=== PATIENT | male | born 1995 | race Caucasian/White ===

== ENCOUNTER 2018-03-02 18:39 | Inpatient (IN) ==
[2018-03-02] MEDS ORDERED: Naloxone Inj 2 MG/2 ML Vial IM ONE (18:56)
[2018-03-02] MEDS ORDERED: Charcoal Activated Liq 25 GM/120 ML Bottle NG/OG ONE (18:56)
[2018-03-02] MEDS ORDERED: Sod Chloride 0.9% Inj 1,000 ML IV.SIG ONE ×2 (18:56→21:08)
--- NOTE | 2018-03-02 19:05 | ED ---
HPI General Chief Complaint: Overdose Stated Complaint: Poss OD Time Seen by Provider: 03/02/18 18:52 Source: patient and RN notes reviewed Limitations: no limitations History of Present Illness HPI Narrative: 22-year-old male presents to the emergency department for evaluation of overdose. According to the patient, approximately 15-20 minutes ago, he took 12 Xanax 0.25 mg and 8 morphine 30 mg tablets. He states that he "feels useless". He does state that he was trying to commit suicide. He states that his girlfriend brought him to the emergency department. He states he drinks alcohol occasionally, last time was 3 days ago. He smokes marijuana. He denies any other illicit drug use. Moderate severity. MD complaint: Reports intentional overdose Onset (ago): minute(s) (15-20) Intent: suicide attempt How Overdose Was Discovered: called family/friend Associated symptoms: depression Treatments Prior to Arrival: none Related Data Home Medications Medication Instructions Recorded Confirmed No Known Home Medications 03/02/18 03/02/18 Allergies Allergy/AdvReac Type Severity Reaction Status Date / Time *MDRO Multi-Drug Resistant AdvReac Unknown n/a Uncoded 03/02/18 18:55 Organism Review of Systems ROS: all other systems reviewed are negative PMFSH Social History Social History Substance History: Active Abuse Second Hand Smoke Exposure: Yes Smoking Status: Never smoker How Often Do You Have a Drink Containing Alcohol: 2 to 4 times a month Recent Travel in [facility] within the Last 8 Weeks: No Recent Out of Country Travel within the Last 8 Weeks: No Substance Abuse Detail Opiates: Substance Use Status: Active Route Used Substance Abuse: By Mouth Reason for Use: Hurt Myself Immunization History Tetanus Immunization: Unsure Exam Narrative Exam Narrative: GENERAL: Well-nourished, well-developed male patient, afebrile. SKIN: Focused skin assessment warm/dry. HEAD: Normocephalic. Atraumatic EYES: No scleral icterus. No injection or drainage. Pupils 3 mm, PERRLA NECK: Supple, trachea midline. No JVD or lymphadenopathy. CARDIOVASCULAR: Regular rhythm without murmurs, gallops, or rubs. Patient is bradycardic. RESPIRATORY: Breath sounds equal bilaterally. No accessory muscle use. Lung sounds are clear to auscultation GASTROINTESTINAL: Abdomen soft, non-tender, nondistended. MUSCULOSKELETAL: No cyanosis, or edema. BACK: Nontender without obvious deformity. No CVA tenderness. Course Initial Documented Vital Signs Temperature 97.0 F L 03/02/18 18:39 Pulse Rate 64 03/02/18 18:39 Respiratory Rate 16 03/02/18 18:39 Blood Pressure 107/56 L 03/02/18 18:39 Pulse Oximetry 99 12 18:39 Last Documented Vital Signs Temperature 97.0 F L 03/02/18 18:39 Pulse Rate 40 L 03/02/18 21:15 Respiratory Rate 14 03/02/18 21:15 Blood Pressure 99/56 L 03/02/18 21:15 Pulse Oximetry 98 03/02/18 21:15 Medical Decision Making MICHAEL Attestation MICHAEL supervised visit: Yes Attestation: I, Dr. Mendoza, have reviewed the advance practice practitioner's documentation and am in agreement, met with the patient face to face, made the diagnosis, and the medical decision making was done by me. *My assessment and Findings: Opioid and xanax overdose here. Sinus bradycardia into 30s after naloxone. Naloxone drip started here. One prior HR on record from 2014 is 67. Pt is AOx3 although very sleepy though slightly improved after Narcane. Pt received activated charcoal upon arrival. Admission for IMC. MDM Narrative Medical decision making narrative: 22 year old male presents to the emergency department for evaluation after he intentionally overdosed on Xanax and Morphine. EKG, CBC, CMP, Magnesium, UDS, Salicylate level, Acetaminophen level , PTT, PT/INR are ordered and pending. Patient is given NS 1 L IV bolus, Zofran 4 mg IV, Charcoal 50 gm PO, Narcan 2 mg IM. Patient is placed under a Gee Act. CBC shows no acute abnormality. CMP shows no acute abnormality. Magnesium is 2.2. UDS is pending. Salicylate level is less than 1.7. Acetaminophen level is less than 2.0. PTT is 26.4. PT/INR is 12.1/1.2. Patient's heart rate is in the 30s-40s. He remains drowsy. He is given additional Narcan 0.4 mg IV. 2120 - Patient's heart rate remains in the 30s-40s and he remains drowsy. He is now started on a Narcan drip, given atropine 0.5 mg IV. Second liter normal saline IV bolus is ordered. Patient is admitted to interior design program chair, Dr. Tripathi, who accepts admission. Medical Screen Exam Complete: Yes Emergency Medical Condition: Yes Differential Diagnosis Differential Diagnosis: depression vs. overdose vs. suicidal ideation Medical Records Medical records reviewed: Yes I reviewed the patient's medical records. Lab Data Result diagrams: 03/02/18 19:15 03/02/18 19:15 Lab Results 03/02/18 03/02/18 03/02/18 Range/Units 19:15 19:15 19:15 WBC 5.7 (4.0-11.0) th/mm3 RBC 4.62 (4.50-5.90) mil/mm3 Hgb 14.8 (13.0-17.0) gm/dL Hct 42.9 (39.0-51.0) % MCV 92.9 (80.0-100.0) fL MCH 32.0 (27.0-34.0) pg MCHC 34.5 (32.0-36.0) % RDW 12.6 (11.6-17.2) % Plt Count 239 (150-450) th/mm3 MPV 8.2 (7.0-11.0) fL Neut % (Auto) 53.0 (16.0-70.0) % Lymph % (Auto) 28.5 (9.0-44.0) % Crosby % (Auto) 7.8 (0.0-8.0) % Eos % (Auto) 10.1 H (0.0-4.0) % Baso % (Auto) 0.6 (0.0-2.0) % Neut # (Auto) 3.0 (1.8-7.7) th/mm3 Lymph # (Auto) 1.6 (1.0-4.8) th/mm3 Crosby # (Auto) 0.4 (0.0-0.9) th/mm3 Eos # (Auto) 0.6 H (0.0-0.4) th/mm3 Baso # (Auto) 0.0 (0.0-0.2) th/mm3 WBC Differential . Differential Comment Auto diff final PT 12.1 H (9.8-11.6) sec INR 1.2 Ratio APTT 26.4 (23.4-31.7) sec Puncture Site Patient Temperature O2 Saturation (90-100) % ABG pH (7.380-7.420) ABG pCO2 (38-42) mmHg ABG pO2 (61-120) mmHg ABG HCO3 (22-26) mmol/L ABG O2 Content (12.0-20.0) Vol % ABG Base Excess (-2-2) mmol/L ABG Methemoglobin (0-2) % Micah Test Hemoglobin (12.0-16.0) G/DL Carboxyhemoglobin (0-4) % O2 Delivery Device Inspired O2 % Critical Value Sodium 140 (136-145) meq/L Potassium 3.8 (3.5-5.1) meq/L Chloride 106 (98-107) meq/L Carbon Dioxide 28.2 (21.0-32.0) meq/L Anion Gap 6 (5-15) meq/L BUN 10 (7-18) mg/dL Creatinine 0.91 (0.60-1.30) mg/dL Estimated GFR Greater than 89 (>89) mL/min Random Glucose 77 (74-106) mg/dL Calcium 8.6 (8.5-10.1) mg/dL Magnesium 2.2 (1.5-2.5) mg/dL Total Bilirubin 1.4 H (0.2-1.0) mg/dL AST 18 (15-37) U/L ALT 27 (12-78) U/L Alkaline Phosphatase 80 (45-117) U/L Total Protein 7.1 (6.4-8.2) g/dL Albumin 4.1 (3.4-5.0) g/dL Salicylates (2.8-20.0) mg/dL Acetaminophen Less than 2.0 L (10.0-30.0) mcg/mL Serum Alcohol Less than 3 (0-5) mg/dL 03/02/18 03/02/18 Range/Units 19:15 19:35 WBC (4.0-11.0) th/mm3 RBC (4.50-5.90) mil/mm3 Hgb (13.0-17.0) gm/dL Hct (39.0-51.0) % MCV (80.0-100.0) fL MCH (27.0-34.0) pg MCHC (32.0-36.0) % RDW (11.6-17.2) % Plt Count (150-450) th/mm3 MPV (7.0-11.0) fL Neut % (Auto) (16.0-70.0) % Lymph % (Auto) (9.0-44.0) % Crosby % (Auto) (0.0-8.0) % Eos % (Auto) (0.0-4.0) % Baso % (Auto) (0.0-2.0) % Neut # (Auto) (1.8-7.7) th/mm3 Lymph # (Auto) (1.0-4.8) th/mm3 Crosby # (Auto) (0.0-0.9) th/mm3 Eos # (Auto) (0.0-0.4) th/mm3 Baso # (Auto) (0.0-0.2) th/mm3 WBC Differential Differential Comment PT (9.8-11.6) sec INR Ratio APTT (23.4-31.7) sec Puncture Site Left radial Patient Temperature 98.6 O2 Saturation 96 (90-100) % ABG pH 7.39 (7.380-7.420) ABG pCO2 39 (38-42) mmHg ABG pO2 103 (61-120) mmHg ABG HCO3 23 (22-26) mmol/L ABG O2 Content 17.2 (12.0-20.0) Vol % ABG Base Excess -1.0 (-2-2) mmol/L ABG Methemoglobin 0.7 (0-2) % Micah Test Present Hemoglobin 12.6 (12.0-16.0) G/DL Carboxyhemoglobin 1.6 (0-4) % O2 Delivery Device Room air Inspired O2 21 % Critical Value No Sodium (136-145) meq/L Potassium (3.5-5.1) meq/L Chloride (98-107) meq/L Carbon Dioxide (21.0-32.0) meq/L Anion Gap (5-15) meq/L BUN (7-18) mg/dL Creatinine (0.60-1.30) mg/dL Estimated GFR (>89) mL/min Random Glucose (74-106) mg/dL Calcium (8.5-10.1) mg/dL Magnesium (1.5-2.5) mg/dL Total Bilirubin (0.2-1.0) mg/dL AST (15-37) U/L ALT (12-78) U/L Alkaline Phosphatase (45-117) U/L Total Protein (6.4-8.2) g/dL Albumin (3.4-5.0) g/dL Salicylates Less than 1.7 L (2.8-20.0) mg/dL Acetaminophen (10.0-30.0) mcg/mL Serum Alcohol (0-5) mg/dL Discharge Plan Discharge Disposition Patient Disposition: ED Admit(ED Internal Use Only) Discharge Order Discharge Orders: ED Use Only Admit Order (Routine); Ordered 03/02/18 Ordered By: Chantale Gutierrez Discharge Details Diagnosis: Drug overdose Physicians Team ED Provider: Brendon Mendoza ED Midlevel Provider: Chantale Gutierrez Primary Care Provider: Primary Care Juliana Rashid Rxs /Orders / Referrals /Forms Prescriptions: No Action No Known Home Medications RF: 0 Discharge Interventions Interventions: Vital Signs Last Done: 03/02/18 21:15 Status ED Status: Admitted Patient
[2018-03-02] MEDS ORDERED: Naloxone Inj 0.4 MG/ML Vial IV.PUSH ONE ×2 (19:32→21:15)
[2018-03-02 19:33] LABS: Baso % (Auto) 0.6 % (0.0-2.0); Eos % (Auto) 10.1 % (0.0-4.0); Hematocrit 42.9 % (39.0-51.0); Hemoglobin 14.8 gm/dL (13.0-17.0); Lymph % (Auto) 28.5 % (9.0-44.0); Mean Corpuscular HGB Conc 34.5 % (32.0-36.0); Mean Corpuscular Volume 92.9 fL (80.0-100.0); Mean Platelet Volume 8.2 fL (7.0-11.0); Mono % (Auto) 7.8 % (0.0-8.0); Platelet Count 239 th/mm3 (150-450); Red Blood Count 4.62 mil/mm3 (4.50-5.90); Red Cell Distribution Width 12.6 % (11.6-17.2); White Blood Count 5.7 th/mm3 (4.0-11.0)
[2018-03-02] MEDS ORDERED: Naloxone Inj 0.4 MG/ML Vial ONE (19:33)
[2018-03-02 19:34] LABS: Eos # (Auto) 0.6 th/mm3 (0.0-0.4); Lymph # (Auto) 1.6 th/mm3 (1.0-4.8); Mono # (Auto) 0.4 th/mm3 (0.0-0.9)
[2018-03-02 19:48] LABS: Activated Partial Thrombo Time 26.4 sec (23.4-31.7); INR 1.2 Ratio; Prothrombin Time 12.1 sec (9.8-11.6)
[2018-03-02 20:05] LABS: Alanine Aminotransferase 27 U/L (12-78); Albumin 4.1 g/dL (3.4-5.0); Anion Gap 6 meq/L (5-15); Aspartate Aminotransferase 18 U/L (15-37); Blood Urea Nitrogen 10 mg/dL (7-18); Calcium 8.6 mg/dL (8.5-10.1); Carbon Dioxide 28.2 meq/L (21.0-32.0); Chloride 106 meq/L (98-107); Glomerular Filtration Rate Greater Than 89 mL/min (>89); Glucose,Random 77 mg/dL (74-106); Magnesium 2.2 mg/dL (1.5-2.5); Potassium 3.8 meq/L (3.5-5.1); Sodium 140 meq/L (136-145)
[2018-03-02 20:08] LABS: Alkaline Phosphatase 80 U/L (45-117); Total Protein 7.1 g/dL (6.4-8.2)
[2018-03-02 20:15] LABS: ABG PCO2 39 mmHg (38-42); ABG PO2 103 mmHg (61-120)
[2018-03-02] MEDS ORDERED: Atropine Inj 1 MG/ML Vial IV.PUSH ONE (21:13)
[2018-03-02 22:14] LABS: Amphetamine Screen,Urine Neg (Neg); Barbiturate Screen,Urine Neg (Neg); Cannabinoid Screen,Urine Pos (Neg); Cocaine Screen,Urine Neg (Neg)
[2018-03-02 22:28] LABS: Opiate Screen,Urine Neg (Neg)
--- NOTE | 2018-03-02 23:37 | P.HPCC ---
History of Present Illness Service: Critical care Primary Care Physician: No Primary Care Physician Chief Complaint: Suicide attempt via intentional drug overdose History of Present Illness: 22yM presenting to the ED for suicide attempt via intentional drug overdose. The patient is currently confused, able to tell me his name/ where he is but only answers "I took all the drugs" when I ask him what brought him in this evening. As per ED notes, the patient reportedly took morphine (240 mg total) and Xanax (3 mg total) in an attempt to kill himself. He was given Narcan and activated charcoal prior to my evaluation. He is maintaining his airway and does not currently require intubation. - Diagnosis (1) Suicide attempt (2) Drug overdose (3) Encephalopathy acute Inpatient Certification: I certify that the inpatient services were ordered in accordance with Medicare regulations governing the order. This includes certification that hospital inpatient services are reasonable and necessary and in the case of services not specified as inpatient-only under 42 CFR 419.22(n), that they are appropriately provided as inpatient services in accordance to with the 2-midnight benchmark under 43 CFR 412.3(e) Estimated Total Length of Stay (Days): 2 Plans for Post Hospital Care: Home Review of Systems unobtainable due to mental status PMFSH - History History Provided By: Patient, Medical Record - Medical / Surgical Hx Neg / Unobtainable Medical Problems Denied: Unable to Obtain Surgical History: Unable to Obtain - Medical History Medical History: Medical History (Last Reviewed 03/02/18 @ 23:56 by Cathy Tripathi DO) Medical history unknown Surgical history unknown - Social History I have reviewed the patient's Social History: Yes - Tobacco History Second Hand Smoke Exposure: Yes Smoking Status: Never smoker - Alcohol History How Often Do You Have a Drink Containing Alcohol: 2 to 4 times a month - Substance Use History Substance History: Active Abuse - Substance Use Type Opiates Status: Active Route Used: By Mouth Reason for Use: Hurt Myself - Travel History Recent Travel in the [place] Within the Last 8 Weeks: No Recent Travel Out of the Country Within the Last 8 Weeks: No - Immunization History Tetanus Immunization: Unsure Medications and Allergies Active Medications: Active Medications Naloxone HCl 4 mg/ Dextrose 250 mls @ 12.5 mls/hr IV.CONT TITRATE PRN; Protocol PRN Reason: Ordered RASS Sodium Chloride (Ns Flush) 2 ml IV.FLUSH PRN PRN PRN Reason: FLUSH AFTER USING IV ACCESS Allergies Allergy/AdvReac Type Severity Reaction Status Date / Time *MDRO Multi-Drug Resistant AdvReac Unknown n/a Uncoded 03/02/18 18:55 Organism Home Medications Medication Instructions Recorded Confirmed Type No Known Home Medications 03/02/18 03/02/18 History Results - Labs CBC & Chem 7: 03/02/18 19:15 03/02/18 19:15 Labs: Short CBC 03/02/18 Range/Units 19:15 WBC 5.7 (4.0-11.0) th/mm3 Hgb 14.8 (13.0-17.0) gm/dL Hct 42.9 (39.0-51.0) % Plt Count 239 (150-450) th/mm3 BMP 03/02/18 19:15 Sodium 140 Potassium 3.8 Chloride 106 Carbon Dioxide 28.2 BUN 10 Creatinine 0.91 Calcium 8.6 Liver Function 03/02/18 Range/Units 19:15 Total Bilirubin 1.4 H (0.2-1.0) mg/dL AST 18 (15-37) U/L ALT 27 (12-78) U/L Alkaline Phosphatase 80 (45-117) U/L Albumin 4.1 (3.4-5.0) g/dL - ECG Attestation: I personally reviewed and interpreted this ECG as follows: Interpretation: Rate: 47 BPM Rhythm: Sinus [place]: Normal Intervals: Normal intervals, no blocks, QTc 386 ms Q waves: II, III, aVF (non-pathologic) T waves: Inverted in V3 ST segments: No elevations or depressions Impression: Non-specific EKG, no terminal R wave/ prolonged QTc/ other signs concerning for tricyclic overdose, sinus bradycardia. Exam Vital signs: Vital Signs 03/02/18 18:39 03/02/18 18:48 03/02/18 19:03 Temperature 97.0 F L Pulse Rate 64 51 L Respiratory Rate 16 14 Blood Pressure 107/56 L 103/56 L Pulse Oximetry 99 100 100 03/02/18 19:25 03/02/18 19:36 03/02/18 19:40 Temperature Pulse Rate 40 L 46 L 50 L Respiratory Rate 16 14 16 Blood Pressure 103/63 91/52 L 110/70 Pulse Oximetry 100 98 98 03/02/18 20:08 03/02/18 21:15 03/02/18 21:29 Temperature Pulse Rate 41 L 40 L 67 Respiratory Rate 14 14 15 Blood Pressure 111/68 99/56 L 112/60 Pulse Oximetry 98 98 99 03/02/18 22:00 03/02/18 23:33 Temperature Pulse Rate 88 48 L Respiratory Rate 18 16 Blood Pressure 137/67 99/57 L Pulse Oximetry 98 100 Intake & Output 03/02/18 03/02/18 03/03/18 06:59 18:59 06:59 Intake Total 1999 Output Total 500 / 500 Balance 1500 / 1500 Weight 54.431 kg Intake: IV 1999 NS Inj 1,000 ML @ Wide Open IV. 1999 SIG BOLUS ONE Rx#:[id number] Output: Urine 500 / 500 Narrative: GEN: Sleepy but easily arousable to voice, no current distress HEENT: Dried charcoal noted on mouth/ in oropharynx, pupils 2 mm and reactive bilaterally CARDIO: Felipe, regular RESP: Clear to auscultation bilaterally, mildly bradypneic but no respiratory distress, O2 sats 100% on room air ABD/GI: Soft, non-tender, non-distended EXT/MSK: No peripheral edema SKIN: Warm and well-perfused NEURO: Sleepy but easily arousable, RASS 0, GCS 13 ([id number]) PSYCH: Calm, cooperative with exam, no current agitation, answers "yes" when asked if this was an intentional overdose but does not answer any additional questions Caprini VTE Risk Assessment Caprini VTE Risk Assessment: No/Low Risk (score <= 1) Caprini Risk Assessment Model: Point Value = 1 Point Value = 2 Point Value = 3 Point Value = 5 Age 41-60 Minor surgery BMI > 25 kg/m2 Swollen legs Varicose veins or History of unexplained or recurrent spontaneous Oral contraceptives or hormone replacement Sepsis (< 1 month) Serious lung disease, including pneumonia (< 1 month) Abnormal pulmonary function Acute myocardial infarction Congestive heart failure (< 1 month) History of inflammatory bowel disease Medical patient at bed rest Age 61-74 Arthroscopic surgery Major open surgery (> 45 min) Laparoscopic surgery (> 45 min) Malignancy Confined to bed (> 72 hours) Immobilizing plaster cast Central venous access Age >= 75 History of VTE Family history of VTE Factor V Leiden Prothrombin [id number] Lupus anticoagulant Anticardiolipin antibodies Elevated serum homocysteine Heparin-induced thrombocytopenia Other congenital or acquired thrombophilia Stroke (< 1 month) Elective arthroplasty Hip, pelvis, or leg fracture Acute spinal cord injury (< 1 month) Prophylaxis Regimen: Total Risk Factor Score Risk Level Prophylaxis Regimen 0-1 Low Early ambulation 2 Moderate Order ONE of the following: *Sequential Compression Device (SCD) *Heparin 5000 units SQ BID 3-4 Higher Order ONE of the following medications: *Heparin 5000 units SQ TID *Enoxaparin/Lovenox 40 mg SQ daily (WT < 150 kg, CrCl > 30 mL/min) *Enoxaparin/Lovenox 30 mg SQ daily (WT < 150 kg, CrCl > 10-29 mL/min) *Enoxaparin/Lovenox 30 mg SQ BID (WT < 150 kg, CrCl > 30 mL/min) AND/OR *Sequential Compression Device (SCD) 5 or more Highest Order ONE of the following medications: *Heparin 5000 units SQ TID (Preferred with Epidurals) *Enoxaparin/Lovenox 40 mg SQ daily (WT < 150 kg, CrCl > 30 mL/min) *Enoxaparin/Lovenox 30 mg SQ daily (WT < 150 kg, CrCl > 10-29 mL/min) *Enoxaparin/Lovenox 30 mg SQ BID (WT < 150 kg, CrCl > 30 mL/min) AND *Sequential Compression Device (SCD) Assessment and Plan - Problem List (1) Suicide attempt Code(s): T14.91XA - Suicide attempt, initial encounter Status: Acute (2) Drug overdose Code(s): T50.901A - Poisoning by unspecified drugs, medicaments and biological substances, accidental (unintentional), initial encounter Status: Acute (3) Encephalopathy acute Code(s): G93.40 - Encephalopathy, unspecified Status: Acute - Assessment and Plan Plan: 22yM presenting after suicide attempt via intentional poly-drug overdose NEURO/ TOX: * Frequent neuro checks, Narcan PRN (gtt ordered in ED but patient is currently easily arousable and does not appear to have any significant respiratory depression) * If the patient begins to become more somnolent, will start CO2 monitoring and consider Narcan gtt * Patient also received activated charcoal in ED, aspiration precautions * Poison Control Center contacted by ED and is following PSYCH: * Gee Act filed by ED physician, patient presents an immediate danger to himself given admission of intentional drug overdose * 1:1 observation, suicide precautions * AM psych consult F/E/N: * Maintenance fluids, NPO * AM labs PROPHY: * Early ambulation/ SCDs, low risk for DVT, no indication for pharmacologic prophylaxis * Pepcid until diet resumed Counseling/ Coordination of Care: This patient is critically ill with impairment of one or more vital organ systems with a high probability of imminent or life-threatening deterioration. High-complexity medical decision making was required to support vital organ function and/ or prevent deterioration in the patient's condition. Total critical care time spent is 45 minutes giving full attention to this patient. This includes examining the patient, gathering history from someone other than the patient (i.e. chart review), discussing the patient's care with other providers, managing the patient's mental status and need for Narcan antidote administration, re-evaluation at frequent intervals, and documentation. Amount of time is separate from teaching, counseling the patient and/or family, and exclusive of procedures. Code Status: Full (2) Drug overdose Qualifiers: Encounter type: initial encounter Injury intent: intentional self-harm Qualified Code(s): T50.902A - Poisoning by unspecified drugs, medicaments and biological substances, intentional self-harm, initial encounter
[2018-03-02] MEDS ORDERED: Potassium Chloride 25 MEQ Effervescent Tablet PO PRN (23:38)
[2018-03-02] MEDS ORDERED: Magnesium Sulfate Inj 2 GM in Sodium Chlor 0.9% Inj 96 ML IV.SIG PRN (23:38)
[2018-03-02] MEDS ORDERED: Sodium Phosphate Inj 30 MMOL in Sodium Chlor 0.9% Inj 250 ML IV.SIG PRN (23:38)
[2018-03-02] MEDS ORDERED: Potassium Phosphate 500 MG Soluble Tablet PO PRN ×2 (23:38)
[2018-03-02] MEDS ORDERED: Potassium Chlor 20 mEq Premix 20 MEQ/100 ML PIGGYBACK IV.SIG PRN ×2 (23:38)
[2018-03-02] MEDS ORDERED: Potassium Chlor 40 mEq Premix 40 MEQ/100 ML PIGGYBACK IV.SIG PRN ×2 (23:38)
[2018-03-02] MEDS ORDERED: Naloxone Inj 0.4 MG/ML Vial IV.PUSH PRN (23:38)
[2018-03-02] MEDS ORDERED: Bisacodyl 10 MG Supp RECTAL PRN (23:38)
[2018-03-02] MEDS ORDERED: Magnesium Oxide 400 MG Tablet PO PRN (23:38)
[2018-03-02] MEDS ORDERED: Magnesium Sulfate Inj 4 GM in Sodium Chlor 0.9% Inj 92 ML IV.SIG PRN (23:38)
[2018-03-02] MEDS ORDERED: Potassium Phosphate Inj 30 MMOL in Sodium Chlor 0.9% Inj 250 ML IV.SIG PRN (23:38)
[2018-03-02] MEDS ORDERED: Sod Chloride 0.9% Inj 1,000 ML IV.CONT SCH (23:45)
[2018-03-03] MEDS ORDERED: Chlorhexidine Gluconate 2% 1 Pack (2 Cloths) TOPICAL PRN (04:00)
[2018-03-03] MEDS ORDERED: Chlorhexidine Gluconate 2% 1 Pack (2 Cloths) TOPICAL SCH (04:00)
[2018-03-03 04:15] LABS: Baso % (Auto) 0.7 % (0.0-2.0); Eos # (Auto) 0.7 th/mm3 (0.0-0.4); Eos % (Auto) 10.7 % (0.0-4.0); Hematocrit 38.6 % (39.0-51.0); Hemoglobin 13.5 gm/dL (13.0-17.0); Lymph % (Auto) 28.8 % (9.0-44.0); Mean Corpuscular Hemoglobin 32.3 pg (27.0-34.0); Mean Corpuscular Volume 92.2 fL (80.0-100.0); Mean Platelet Volume 7.7 fL (7.0-11.0); Mono # (Auto) 0.5 th/mm3 (0.0-0.9); Mono % (Auto) 7.1 % (0.0-8.0); Neut # (Auto) 3.6 th/mm3 (1.8-7.7); Neut % (Auto) 52.7 % (16.0-70.0); Platelet Count 227 th/mm3 (150-450); Red Blood Count 4.18 mil/mm3 (4.50-5.90); Red Cell Distribution Width 12.8 % (11.6-17.2); White Blood Count 6.9 th/mm3 (4.0-11.0)
[2018-03-03 05:02] LABS: Alanine Aminotransferase 21 U/L (12-78); Albumin 3.4 g/dL (3.4-5.0); Alkaline Phosphatase 68 U/L (45-117); Anion Gap 7 meq/L (5-15); Aspartate Aminotransferase 12 U/L (15-37); Blood Urea Nitrogen 9 mg/dL (7-18); Calcium 7.8 mg/dL (8.5-10.1); Carbon Dioxide 24.1 meq/L (21.0-32.0); Chloride 114 meq/L (98-107); Glomerular Filtration Rate Greater Than 89 mL/min (>89); Glucose,Random 76 mg/dL (74-106); Magnesium 2.2 mg/dL (1.5-2.5); Potassium 3.8 meq/L (3.5-5.1); Sodium 145 meq/L (136-145); Total Protein 5.9 g/dL (6.4-8.2)
[2018-03-03 05:35] VITALS: TEMP 97.5
[2018-03-03] MEDS ORDERED: Famotidine PF Inj 20 MG/2 ML Vial IV.PUSH SCH (09:00)
[2018-03-03] MEDS ORDERED: Senna/Docusate Sodium 8.6/50 MG Tablet PO SCH (09:00)
[2018-03-03] MEDS ORDERED: Famotidine 20 MG Tablet PO SCH (09:00)
--- NOTE | 2018-03-03 10:42 | P.PNCC ---
Subjective Subjective Remarks/Hospital Course: 22yM presenting to the ED for suicide attempt via intentional drug overdose. The patient is currently confused, able to tell me his name/ where he is but only answers "I took all the drugs" when I ask him what brought him in this evening. As per ED notes, the patient reportedly took morphine (240 mg total) and Xanax (3 mg total) in an attempt to kill himself. He was given Narcan and activated charcoal prior to my evaluation. He is maintaining his airway and does not currently require intubation. Subjective 03/03: Resting in bed in no acute distress. Agitated. Bradycardic. States he wants to "go home and see his girlfriend ". Objective Vital Signs / I&O: Vital Signs 03/02/18 18:39 03/02/18 18:48 03/02/18 19:03 Temperature 97.0 F L Pulse Rate 64 51 L Respiratory Rate 16 14 Blood Pressure 107/56 L 103/56 L Pulse Oximetry 99 100 100 03/02/18 19:25 03/02/18 19:36 03/02/18 19:40 Temperature Pulse Rate 40 L 46 L 50 L Respiratory Rate 16 14 16 Blood Pressure 103/63 91/52 L 110/70 Pulse Oximetry 100 98 98 03/02/18 20:08 03/02/18 21:15 03/02/18 21:29 Temperature Pulse Rate 41 L 40 L 67 Respiratory Rate 14 14 15 Blood Pressure 111/68 99/56 L 112/60 Pulse Oximetry 98 98 99 03/02/18 22:00 03/02/18 23:33 03/03/18 00:08 Temperature 98 F Pulse Rate 88 48 L 48 L Respiratory Rate 18 16 18 Blood Pressure 137/67 99/57 L 107/75 Pulse Oximetry 98 100 98 03/03/18 00:40 03/03/18 00:44 03/03/18 01:00 Temperature Pulse Rate 47 L 39 L 38 L Respiratory Rate 24 23 Blood Pressure 100/61 110/66 Pulse Oximetry 100 100 03/03/18 02:00 03/03/18 02:01 03/03/18 03:00 Temperature 97.5 F L Pulse Rate 39 L 39 L 36 L Respiratory Rate 17 18 17 Blood Pressure 87/48 L 99/54 L Pulse Oximetry 98 99 98 03/03/18 04:00 03/03/18 05:00 03/03/18 06:00 Temperature Pulse Rate 39 L 38 L 36 L Respiratory Rate 32 H 24 20 Blood Pressure 90/49 L 90/55 L 91/52 L Pulse Oximetry 98 99 98 03/03/18 07:00 Temperature Pulse Rate 37 L Respiratory Rate 31 H Blood Pressure 94/54 L Pulse Oximetry 98 Intake & Output 03/02/18 03/03/18 03/03/18 18:59 06:59 18:59 Intake Total 1999 Output Total 572 / 572 Balance 1428 / 1428 Weight 54.431 kg 52 kg Intake: IV 1999 NS Inj 1,000 ML @ Wide Open IV. 1999 SIG BOLUS ONE Rx#:[id number] Output: Urine 572 / 572 Other: Weight On Admission 52 kg Result Diagrams: 03/03/18 03:46 03/03/18 03:46 Objective Remarks: GENERAL: 22-year-old male currently resting in bed in no acute distress SKIN: Warm and dry. HEAD: Atraumatic. Normocephalic. EYES: Pupils equal and round. No scleral icterus. No injection or drainage. ENT: No nasal bleeding or discharge. Mucous membranes pink and moist.. Teeth are black covered and charcoal NECK: Trachea midline. No JVD. CARDIOVASCULAR: Bradycardic, RR. S1, S2 predose 4. RESPIRATORY: No accessory muscle use. Clear to auscultation. Breath sounds equal bilaterally. GASTROINTESTINAL: Abdomen soft, non-tender, nondistended. Hepatic and splenic margins not palpable. MUSCULOSKELETAL: Extremities without clubbing, cyanosis, or edema. No obvious deformities. NEUROLOGICAL: Awake and alert. No obvious cranial nerve deficits. Motor grossly within normal limits. Five out of 5 muscle strength in the arms and legs. Normal speech. PSYCHIATRIC: Extremely agitated. Assessment and Plan - Assessment and Plan Plan: Neuro/Psych: Intentional overdose of alprazolam and morphine sulfate Cannabinoids use Urine toxicology screen positive for benzodiazepines and cannabinoids. Status post charcoal lavage. See H&P 1-1 Currently under Gee act Psychiatry consultation CV: Sinus bradycardia/asymptomatic Currently normal saline 84 cc an hour. Not requiring vasopressors and/or antihypertensives Resp: Nasal cannula to maintain saturations greater than equal 92% Incentive spirometry while awake Albuterol/ipratropium aerosols every 4 hours with albuterol aerosols every 2 hours as needed dyspnea GI: Advance diet as tolerated Famotidine for GI prophylaxis Docusate sodium/senna 1 tablet twice daily for bowel regimen : Straight catheterization as needed no indication for Bingham catheter Endo: Sliding scale insulin if indicated to maintain euglycemia Renal: Creatinine currently within normal limits Monitor urine output Accurate I's and O's Heme: CBC currently within normal limits. No indication for transfusion of blood products at this time. ID: Monitor for signs and symptomatology of infection MSK: PT evaluate and treat FEN: Replace electrolytes as clinically indicated per ICU electrolyte protocol Access -Utilize peripheral IV. Central line if indicated Prophylaxis -GI -famotidine -DVT -SCD/heparin subcu Level 2 follow-up
--- NOTE | 2018-03-03 10:57 | ECG ---
Date Performed: 03/02/2018 Time Performed: 18:50:53 PTAGE: 22 years EKG: SINUS BRADYCARDIA WITH SINUS ARRHYTHMIA NONSPECIFIC T-WAVE ABNORMALITY BORDERLINE ECG VOLTA GE CRITERIA FOR Left ventricular hypertrophy NO PREVIOUS TRACING DOCTOR: Stephan Meeks Interpretating Date/Time 03/03/2018 10:56:12
[2018-03-03 12:08] VITALS: BP 116/51; PULSE 50; RESP 27; O2SAT 99
--- NOTE | 2018-03-03 14:22 | P.CONPSY ---
Provisional Diagnosis Admission Date: March 02, 2018 21:21 History of Present Illness Service: Psychiatry Consult date: 03/03/18 Reason for Consult: Overdose Primary Care Provider: No Primary Care Physician Chief Complaint: Suicide attempt via intentional drug overdose History of Present Illness: This is a request for a psychiatric consult. Documentation was reviewed, case was discussed with nursing and patient was evaluated. Patient is a 22-year-old male with a history of ADD here for an overdose on Xanax and opiates. Patient has been belligerent and oppositional per nursing demanding to go home. Patient minimizes to suicide attempt and provides a convoluted story where him and his girlfriend both took to Xanax tablets to calm down after an argument. Patient describes recent risky behavior. Patient slept with another woman while he was intoxicated with alcohol. 2 days ago his girlfriend had a 3 sum with his sister and another monique. Patient has a history of cutting his left arm is marked with horizontal cuts. When asked about manic symptoms, he answers "yes, every day too hyper." However, he is not listening to the criteria very carefully. He denies recent depressed mood. He denies suicidal or homicidal ideation intent or plan. I took all the drugs" when I ask him what brought him in this evening. As per ED notes, the patient reportedly took morphine (240 mg total) and Xanax (3 mg total) in an attempt to kill himself. He was given Narcan and activated charcoal prior to my evaluation. He is maintaining his airway and does not currently require intubation. Past psych: Patient was medicated at age 7 for ADD. Denies other inpatient or outpatient treatments. Denies a history of suicide attempts Past medical: Denies Past Famhx: Mom has bipolar and that has depression. Past Social: Patient works periodically doing "tree work." He has an upcoming court date after marijuana steel grinder was found in his car. He uses marijuana daily. And says he drinks alcohol twice a month. He gives conflicting statements concerning the use of other people's opiates and benzodiazepines. Review of Systems All other systems reviewed negative except as stated in HPI PMFSH - History History Provided By: Patient, Medical Record - Medical / Surgical Hx Neg / Unobtainable Medical Problems Denied: Unable to Obtain - Medical History Medical History: Medical History (Last Reviewed 03/03/18 @ 14:21 by MARYLIN Powell Medical history unknown Surgical history unknown - Tobacco History Second Hand Smoke Exposure: Yes Smoking Status: Never smoker - Alcohol History How Often Do You Have a Drink Containing Alcohol: 2 to 4 times a month - Substance Use History Substance History: Active Abuse - Substance Use Type Opiates Status: Active Route Used: By Mouth Reason for Use: Hurt Myself - Travel History Recent Travel in the [place] Within the Last 8 Weeks: No Recent Travel Out of the Country Within the Last 8 Weeks: No - Immunization History Tetanus Immunization: Unsure Hx Influenza Vaccine This Season: No Medications and Allergies Active Medications: Active Medications Al Hydroxide/Mg Hydroxide (Milk Of Christine Liq) 30 ml PO Q12H PRN PRN Reason: Mild Constipation Albuterol (Albuterol Neb (Prn)) 2.5 mg NEB Q2HR NEB PRN PRN Reason: DYSPNEA Albuterol (Duoneb Neb (Vu)) 1 ampul NEB Q4HR NEB VU Last Admin: 03/03/18 11:04 Dose: Not Given Bisacodyl (Dulcolax Supp) 10 mg RECTAL DAILY PRN PRN Reason: SEVERE CONSITIPATION Chlorhexidine Gluconate (Chlorhexidine 2% Cloth) 3 pack TOPICAL DAILY@0400 VU Stop: 03/08/18 03:59 Last Admin: 03/03/18 07:14 Dose: 3 pack Chlorhexidine Gluconate (Chlorhexidine 2% Cloth) 3 pack TOPICAL DAILY@0400 PRN PRN Reason: Extra cloth needed Stop: 03/08/18 03:59 Famotidine (Pepcid) 20 mg PO BID VU Last Admin: 03/03/18 09:39 Dose: Not Given Naloxone HCl 4 mg/ Dextrose 250 mls @ 12.5 mls/hr IV.CONT TITRATE PRN; Protocol PRN Reason: Ordered RASS Magnesium Sulfate 4 gm/ Sodium (Chloride) 100 mls @ 50 mls/hr IV.SIG UNSCH PRN PRN Reason: For Magnesium 0.9 - 1.1 mg/dL Magnesium Sulfate 2 gm/ Sodium (Chloride) 100 mls @ 50 mls/hr IV.SIG UNSCH PRN PRN Reason: For Magnesium 1.2 - 1.6 mg/dL Potassium Chloride (Kcl 40 Meq Premix Inj) 40 meq in 100 mls @ 25 mls/hr IV.SIG Q2H PRN PRN Reason: For Potassium 2.8 - 3.2 mEq/L Potassium Chloride (Kcl 20 Meq Premix Inj) 20 meq in 100 mls @ 50 mls/hr IV.SIG Q2H PRN PRN Reason: For Potassium 3.3 - 3.5 mEq/L Potassium Chloride (Kcl 40 Meq Premix Inj) 40 meq in 100 mls @ 25 mls/hr IV.SIG UNSCH PRN PRN Reason: For Potassium 3.3 - 3.5 mEq/L Potassium Chloride (Kcl 20 Meq Premix Inj) 20 meq in 100 mls @ 50 mls/hr IV.SIG Q2H PRN PRN Reason: For Potassium 2.8 - 3.2 mEq/L Sodium Phosphate 30 mmol/ (Sodium Chloride) 260 mls @ 42 mls/hr IV.SIG UNSCH PRN PRN Reason: For Phosphorus < 2.5 mg/dL Sodium Chloride (Ns Inj) 1,000 mls @ 84 mls/hr IV.CONT .[id number] [facility] Last Admin: 03/03/18 00:13 Dose: 84 mls/hr Potassium Phosphate 30 mmol/ (Sodium Chloride) 260 mls @ 42 mls/hr IV.SIG UNSCH PRN PRN Reason: SEE LABEL COMMENTS Lactulose (Lactulose Liq) 30 ml PO DAILY PRN PRN Reason: SEVERE CONSITIPATION Magnesium Oxide (Mag-Ox) 800 mg PO UNSCH PRN PRN Reason: For Magnesium 1.2 - 1.6 mg/dL Naloxone HCl (Narcan Inj) 0.4 mg IV.PUSH Q3M PRN PRN Reason: RESPIRATORY RATE LESS THAN 10 Potassium Bicarb/Potassium Chloride (K-Lyte Cl Eff) 50 meq PO UNSCH PRN PRN Reason: For Potassium 3.3 - 3.5 mEq/L Potassium Phosphate (K-Phos Original) 2,000 mg PO Q4H PRN PRN Reason: Phosphorus Less Than 2.5 mg/dL Potassium Phosphate (K-Phos Original) 2,000 mg PO UNSCH PRN PRN Reason: SEE LABEL COMMENTS Senna/Docusate Sodium (Amanda-Colace) 1 tab PO BID [facility] Last Admin: 03/03/18 09:39 Dose: Not Given Sennosides (Senokot) 17.2 mg PO Q12H PRN PRN Reason: Moderate Constipation Sodium Chloride (Ns Flush) 2 ml IV.FLUSH BID VU Last Admin: 03/03/18 09:40 Dose: Not Given Sodium Chloride (Ns Flush) 2 ml IV.FLUSH PRN PRN PRN Reason: FLUSH AFTER USING IV ACCESS Allergies Allergy/AdvReac Type Severity Reaction Status Date / Time *MDRO Multi-Drug Resistant AdvReac Unknown n/a Uncoded 03/02/18 18:55 Organism Home Medications Medication Instructions Recorded Confirmed Type No Known Home Medications 03/02/18 03/02/18 History Exam Vital signs: Vital Signs 03/02/18 18:39 03/02/18 18:48 03/02/18 19:03 Temperature 97.0 F L Pulse Rate 64 51 L Respiratory Rate 16 14 Blood Pressure 107/56 L 103/56 L Pulse Oximetry 99 100 100 03/02/18 19:25 03/02/18 19:36 03/02/18 19:40 Temperature Pulse Rate 40 L 46 L 50 L Respiratory Rate 16 14 16 Blood Pressure 103/63 91/52 L 110/70 Pulse Oximetry 100 98 98 03/02/18 20:08 03/02/18 21:15 03/02/18 21:29 Temperature Pulse Rate 41 L 40 L 67 Respiratory Rate 14 14 15 Blood Pressure 111/68 99/56 L 112/60 Pulse Oximetry 98 98 99 03/02/18 22:00 03/02/18 23:33 03/03/18 00:08 Temperature 98 F Pulse Rate 88 48 L 48 L Respiratory Rate 18 16 18 Blood Pressure 137/67 99/57 L 107/75 Pulse Oximetry 98 100 98 03/03/18 00:40 03/03/18 00:44 03/03/18 01:00 Temperature Pulse Rate 47 L 39 L 38 L Respiratory Rate 24 23 Blood Pressure 100/61 110/66 Pulse Oximetry 100 100 03/03/18 02:00 03/03/18 02:01 03/03/18 03:00 Temperature 97.5 F L Pulse Rate 39 L 39 L 36 L Respiratory Rate 17 18 17 Blood Pressure 87/48 L 99/54 L Pulse Oximetry 98 99 98 03/03/18 04:00 03/03/18 05:00 03/03/18 06:00 Temperature Pulse Rate 39 L 38 L 36 L Respiratory Rate 32 H 24 20 Blood Pressure 90/49 L 90/55 L 91/52 L Pulse Oximetry 98 99 98 03/03/18 07:00 03/03/18 08:00 03/03/18 09:00 Temperature Pulse Rate 37 L 36 L 37 L Respiratory Rate 31 H 24 34 H Blood Pressure 94/54 L 94/53 L 93/53 L Pulse Oximetry 98 98 98 03/03/18 10:00 03/03/18 10:17 03/03/18 10:31 Temperature Pulse Rate 45 L 45 L 56 L Respiratory Rate 19 26 H 29 H Blood Pressure 108/58 L 108/54 L Pulse Oximetry 99 100 100 03/03/18 11:00 03/03/18 11:31 03/03/18 12:00 Temperature Pulse Rate 78 60 51 L Respiratory Rate 36 H 25 H Blood Pressure 125/58 L 107/51 L Pulse Oximetry 100 99 03/03/18 12:01 Temperature Pulse Rate 50 L Respiratory Rate 27 H Blood Pressure 116/51 L Pulse Oximetry Intake & Output 03/02/18 03/03/18 03/03/18 18:59 06:59 18:59 Intake Total 1999 Output Total 572 / 572 Balance 1428 / 1428 Weight 54.431 kg 52 kg Intake: IV 1999 NS Inj 1,000 ML @ Wide Open IV. 1999 SIG BOLUS ONE Rx#:[id number] Output: Urine 572 / 572 Other: Weight On Admission 52 kg Mental Status Examination Appearance: Disheveled Consciousness: Alert Orientation: x4 Motor Activity: Normal gait Speech: Hesitant, Slow Language: Adequate Fund of Knowledge: Adequate Attention and Concentration: Adequate Memory: Unremarkable Mood: Oppositional Affect: Irritable Thought Process & Associations: Intact Thought Content: Appropriate Hallucination Type: None Delusion Type: None Suicidal Ideation: No Suicidal Plan: No Suicidal Intention: No Homicidal Ideation: No Homicidal Plan: No Homicidal Intention: No Insight: Poor Judgment: Poor Assessment and Plan - Assessment (1) Unspecified mood [affective] disorder Code(s): F39 - Unspecified mood [affective] disorder Status: Acute (2) Borderline personality disorder Code(s): F60.3 - Borderline personality disorder Status: Acute (3) Cannabis abuse Code(s): F12.10 - Cannabis abuse, uncomplicated Status: Acute (4) Opiate abuse, episodic Code(s): F11.10 - Opioid abuse, uncomplicated Status: Acute (5) Benzodiazepine abuse, episodic Code(s): F13.10 - Sedative, hypnotic or anxiolytic abuse, uncomplicated Status : Acute - Plan Plan: Continue Gee act, admitted to the psychiatric unit once medically clear Justification for Continued Inpatient Stay: Patient would decompensate in a less restrictive setting
--- NOTE | 2018-03-03 14:50 | P.DS ---
Date of admission: 03/02/18 21:21 Primary care physician: No Primary Care Physician Attending physician on discharge: Cathy Tripathi Anticipated date of discharge: 03/03/18 Brief History from admission: 22yM presenting to the ED for suicide attempt via intentional drug overdose. The patient is currently confused, able to tell me his name/ where he is but only answers "I took all the drugs" when I ask him what brought him in this evening. As per ED notes, the patient reportedly took morphine (240 mg total) and Xanax (3 mg total) in an attempt to kill himself. He was given Narcan and activated charcoal prior to my evaluation. He is maintaining his airway and does not currently require intubation. Patient update on day of discharge: Resting in bed in no acute distress. Intermittently to have custody agitation. A symptomatically bradycardic in the 50s. Evaluated by psychiatry recommended inpatient when medically cleared. Curently he is medically cleared to transfer to [facility]. DS: Diagnosis - Discharge Diagnosis (1) Benzodiazepine abuse, episodic Status: Acute (2) Borderline personality disorder Status: Acute (3) Cannabis abuse Status: Acute (4) Drug overdose Status: Acute (5) Encephalopathy acute Status: Acute (6) Opiate abuse, episodic Status: Acute (7) Suicide attempt Status: Acute (8) Unspecified mood [affective] disorder Status: Acute DS: Summary Hospital Course: 22yM presenting to the ED for suicide attempt via intentional drug overdose. The patient is currently confused, able to tell me his name/ where he is but only answers "I took all the drugs" when I ask him what brought him in this evening. As per ED notes, the patient reportedly took morphine (240 mg total) and Xanax (3 mg total) in an attempt to kill himself. He was given Narcan and activated charcoal prior to my evaluation. He is maintaining his airway and does not currently require intubation. Subjective 03/03: Resting in bed in no acute distress. Agitated. Bradycardic. States he wants to "go home and see his girlfriend ". - Time Spent with Patient Total time spent providing and/or coordinating discharge services: Less than 30 minutes - Quality: VTE Deep Vein Thrombosis/Pulmonary Embolism Present on Admission: No Exam Vital signs: Vital Signs 03/02/18 18:39 03/02/18 18:48 03/02/18 19:03 Temperature 97.0 F L Pulse Rate 64 51 L Respiratory Rate 16 14 Blood Pressure 107/56 L 103/56 L Pulse Oximetry 99 100 100 03/02/18 19:25 03/02/18 19:36 03/02/18 19:40 Temperature Pulse Rate 40 L 46 L 50 L Respiratory Rate 16 14 16 Blood Pressure 103/63 91/52 L 110/70 Pulse Oximetry 100 98 98 03/02/18 20:08 03/02/18 21:15 03/02/18 21:29 Temperature Pulse Rate 41 L 40 L 67 Respiratory Rate 14 14 15 Blood Pressure 111/68 99/56 L 112/60 Pulse Oximetry 98 98 99 03/02/18 22:00 03/02/18 23:33 03/03/18 00:08 Temperature 98 F Pulse Rate 88 48 L 48 L Respiratory Rate 18 16 18 Blood Pressure 137/67 99/57 L 107/75 Pulse Oximetry 98 100 98 03/03/18 00:40 03/03/18 00:44 03/03/18 01:00 Temperature Pulse Rate 47 L 39 L 38 L Respiratory Rate 24 23 Blood Pressure 100/61 110/66 Pulse Oximetry 100 100 03/03/18 02:00 03/03/18 02:01 03/03/18 03:00 Temperature 97.5 F L Pulse Rate 39 L 39 L 36 L Respiratory Rate 17 18 17 Blood Pressure 87/48 L 99/54 L Pulse Oximetry 98 99 98 03/03/18 04:00 03/03/18 05:00 03/03/18 06:00 Temperature Pulse Rate 39 L 38 L 36 L Respiratory Rate 32 H 24 20 Blood Pressure 90/49 L 90/55 L 91/52 L Pulse Oximetry 98 99 98 03/03/18 07:00 03/03/18 08:00 03/03/18 09:00 Temperature Pulse Rate 37 L 36 L 37 L Respiratory Rate 31 H 24 34 H Blood Pressure 94/54 L 94/53 L 93/53 L Pulse Oximetry 98 98 98 03/03/18 10:00 03/03/18 10:17 03/03/18 10:31 Temperature Pulse Rate 45 L 45 L 56 L Respiratory Rate 19 26 H 29 H Blood Pressure 108/58 L 108/54 L Pulse Oximetry 99 100 100 03/03/18 11:00 03/03/18 11:31 03/03/18 12:00 Temperature Pulse Rate 78 60 51 L Respiratory Rate 36 H 25 H Blood Pressure 125/58 L 107/51 L Pulse Oximetry 100 99 03/03/18 12:01 Temperature Pulse Rate 50 L Respiratory Rate 27 H Blood Pressure 116/51 L Pulse Oximetry Intake & Output 03/02/18 03/03/18 03/03/18 18:59 06:59 18:59 Intake Total 1999 Output Total 572 / 572 Balance 1428 / 1428 Weight 54.431 kg 52 kg Intake: IV 1999 NS Inj 1,000 ML @ Wide Open IV. 1999 SIG BOLUS ONE Rx#:[id number] Output: Urine 572 / 572 Other: Weight On Admission 52 kg Narrative: GENERAL: 22-year-old male currently resting in bed in no acute distress SKIN: Warm and dry. HEAD: Atraumatic. Normocephalic. EYES: Pupils equal and round. No scleral icterus. No injection or drainage. ENT: No nasal bleeding or discharge. Mucous membranes pink and moist.. Teeth are black covered and charcoal NECK: Trachea midline. No JVD. CARDIOVASCULAR: Bradycardic, RR. S1, S2 predose 4. RESPIRATORY: No accessory muscle use. Clear to auscultation. Breath sounds equal bilaterally. GASTROINTESTINAL: Abdomen soft, non-tender, nondistended. Hepatic and splenic margins not palpable. MUSCULOSKELETAL: Extremities without clubbing, cyanosis, or edema. No obvious deformities. NEUROLOGICAL: Awake and alert. No obvious cranial nerve deficits. Motor grossly within normal limits. Five out of 5 muscle strength in the arms and legs. Normal speech. PSYCHIATRIC: Extremely agitated. Results Procedures completed during hospitalization: None Completed studies during hospitalization: None Pending studies at discharge: None Labs on day of discharge: Labs from last 24 hours 03/03/18 03/03/18 03/03/18 03:46 03:46 00:40 WBC 6.9 RBC 4.18 L Hgb 13.5 Hct 38.6 L MCV 92.2 MCH 32.3 MCHC 35.0 RDW 12.8 Plt Count 227 MPV 7.7 Neut % (Auto) 52.7 Lymph % (Auto) 28.8 [place] % (Auto) 7.1 Eos % (Auto) 10.7 H Baso % (Auto) 0.7 Neut # (Auto) 3.6 Lymph # (Auto) 2.0 [place] # (Auto) 0.5 Eos # (Auto) 0.7 H Baso # (Auto) 0.0 WBC Differential . Differential Comment Auto diff final PT INR APTT Puncture Site Patient Temperature O2 Saturation ABG pH ABG pCO2 ABG pO2 ABG HCO3 ABG O2 Content ABG Base Excess ABG Methemoglobin Micah Test Hemoglobin Carboxyhemoglobin O2 Delivery Device Inspired O2 Critical Value Sodium 145 Potassium 3.8 Chloride 114 H D Carbon Dioxide 24.1 Anion Gap 7 BUN 9 Creatinine 0.66 Estimated GFR Greater than 89 Random Glucose 76 Calcium 7.8 L D Magnesium 2.2 Total Bilirubin 1.2 H AST 12 L ALT 21 Alkaline Phosphatase 68 Total Protein 5.9 L D Albumin 3.4 D Nasal Screen MRSA (PCR) Not detected Salicylates Urine Opiates Screen Acetaminophen Ur Barbiturates Screen Ur Amphetamines Screen U Benzodiazepines Scrn Urine Cocaine Screen U Cannabinoids Screen Serum Alcohol 03/02/18 03/02/18 03/02/18 23:02 23:02 21:54 WBC RBC Hgb Hct MCV MCH MCHC RDW Plt Count MPV Neut % (Auto) Lymph % (Auto) [place] % (Auto) Eos % (Auto) Baso % (Auto) Neut # (Auto) Lymph # (Auto) [place] # (Auto) Eos # (Auto) Baso # (Auto) WBC Differential Differential Comment PT INR APTT Puncture Site Patient Temperature O2 Saturation ABG pH ABG pCO2 ABG pO2 ABG HCO3 ABG O2 Content ABG Base Excess ABG Methemoglobin Micah Test Hemoglobin Carboxyhemoglobin O2 Delivery Device Inspired O2 Critical Value Sodium Potassium Chloride Carbon Dioxide Anion Gap BUN Creatinine Estimated GFR Random Glucose Calcium Magnesium Total Bilirubin AST ALT Alkaline Phosphatase Total Protein Albumin Nasal Screen MRSA (PCR) Salicylates Less than 1.7 L Urine Opiates Screen Neg Acetaminophen Less than 2.0 L Ur Barbiturates Screen Neg Ur Amphetamines Screen Neg U Benzodiazepines Scrn Pos H Urine Cocaine Screen Neg U Cannabinoids Screen Pos H Serum Alcohol 03/02/18 03/02/18 03/02/18 19:35 19:15 19:15 WBC RBC Hgb Hct MCV MCH MCHC RDW Plt Count MPV Neut % (Auto) Lymph % (Auto) [place] % (Auto) Eos % (Auto) Baso % (Auto) Neut # (Auto) Lymph # (Auto) [place] # (Auto) Eos # (Auto) Baso # (Auto) WBC Differential Differential Comment PT INR APTT Puncture Site Left radial Patient Temperature 98.6 O2 Saturation 96 ABG pH 7.39 ABG pCO2 39 ABG pO2 103 ABG HCO3 23 ABG O2 Content 17.2 ABG Base Excess -1.0 ABG Methemoglobin 0.7 Micah Test Present Hemoglobin 12.6 Carboxyhemoglobin 1.6 O2 Delivery Device Room air Inspired O2 21 Critical Value No Sodium 140 Potassium 3.8 Chloride 106 Carbon Dioxide 28.2 Anion Gap 6 BUN 10 Creatinine 0.91 Estimated GFR Greater than 89 Random Glucose 77 Calcium 8.6 Magnesium 2.2 Total Bilirubin 1.4 H AST 18 ALT 27 Alkaline Phosphatase 80 Total Protein 7.1 Albumin 4.1 Nasal Screen MRSA (PCR) Salicylates Less than 1.7 L Urine Opiates Screen Acetaminophen Less than 2.0 L Ur Barbiturates Screen Ur Amphetamines Screen U Benzodiazepines Scrn Urine Cocaine Screen U Cannabinoids Screen Serum Alcohol Less than 3 03/02/18 03/02/18 19:15 19:15 WBC 5.7 RBC 4.62 Hgb 14.8 Hct 42.9 MCV 92.9 MCH 32.0 MCHC 34.5 RDW 12.6 Plt Count 239 MPV 8.2 Neut % (Auto) 53.0 Lymph % (Auto) 28.5 [place] % (Auto) 7.8 Eos % (Auto) 10.1 H Baso % (Auto) 0.6 Neut # (Auto) 3.0 Lymph # (Auto) 1.6 [place] # (Auto) 0.4 Eos # (Auto) 0.6 H Baso # (Auto) 0.0 WBC Differential . Differential Comment Auto diff final PT 12.1 H INR 1.2 APTT 26.4 Puncture Site Patient Temperature O2 Saturation ABG pH ABG pCO2 ABG pO2 ABG HCO3 ABG O2 Content ABG Base Excess ABG Methemoglobin Micah Test Hemoglobin Carboxyhemoglobin O2 Delivery Device Inspired O2 Critical Value Sodium Potassium Chloride Carbon Dioxide Anion Gap BUN Creatinine Estimated GFR Random Glucose Calcium Magnesium Total Bilirubin AST ALT Alkaline Phosphatase Total Protein Albumin Nasal Screen MRSA (PCR) Salicylates Urine Opiates Screen Acetaminophen Ur Barbiturates Screen Ur Amphetamines Screen U Benzodiazepines Scrn Urine Cocaine Screen U Cannabinoids Screen Serum Alcohol - Imaging and Cardiology Chest x-ray Status: pending Discharge Plan - Discharge Disposition Patient Disposition: 64 Disc To [facility] - Discharge Condition Condition: Stable - Discharge Order Discharge Orders: Discharge Order (Routine); Ordered 03/03/18 Ordered By: Clemente Perez - Discharge Details Anticipated Discharge Date: 03/03/18 - Physicians Team Primary Care Provider: Primary Care Juliana Rashid Attending Provider: Cathy Tripathi Other Providers: Serge Wilde MD ; Etienne Pulliam MD
== END 2018-03-03 17:00 ==
LOC: NEPE 18:39 → NEDA 21:21 → HIMC 03-03 00:35
PROVIDERS: ADMIT Surgery Surgical Critical Care; ATTEND Surgery Surgical Critical Care

== ENCOUNTER 2018-03-03 16:25 | Inpatient (IN) ==
[2018-03-03] MEDS ORDERED: Acetaminophen 325 MG Tablet PO PRN (16:38)
[2018-03-03] MEDS ORDERED: Aluminum/Magnesium/Simethacone Susp 30 ML UDC PO PRN (16:38)
[2018-03-03] MEDS ORDERED: Melatonin 5 MG Tablet PO PRN (16:38)
[2018-03-03] MEDS ORDERED: LORazepam 1 MG Tablet PO PRN (16:40)
[2018-03-03] MEDS ORDERED: Haloperidol Inj 5 MG/ML Ampul IV.PUSH PRN (16:40)
[2018-03-04 11:17] LABS: Anion Gap 7 meq/L (5-15); Calcium 8.5 mg/dL (8.5-10.1); Carbon Dioxide 28.5 meq/L (21.0-32.0); Chloride 108 meq/L (98-107); Cholesterol 118 mg/dL (120-200); Glomerular Filtration Rate Greater Than 89 mL/min (>89); Glucose,Random 92 mg/dL (74-106); Potassium 3.7 meq/L (3.5-5.1); Sodium 143 meq/L (136-145); Triglycerides 105 mg/dL (42-150)
[2018-03-04 11:26] LABS: Blood Urea Nitrogen 8 mg/dL (7-18); Chol/HDL Ratio 3.42 Ratio; HDL Cholesterol 34.5 mg/dL (40.0-60.0); LDL Cholesterol,Calculated 63 mg/dL (0-99)
--- NOTE | 2018-03-04 12:35 | P.HPPSY ---
Provisional Diagnosis Admission Date: March 03, 2018 17:25 Competence Certification of Person's Competence To Provide Express and Informed Consent I have personally examined David Rosas, a person being served at [facility] on, March 04, 2018 1231. Express and informed consent means consent voluntarily given in writing, by a competent person, after sufficient explanation and disclosure of the subject matter involved to enable the person to make a knowing and willful decision without any element of force, fraud, deceit, duress, or other form of constraint or coercion. This person is 18 years of age or older, is not now known to be incompetent to consent to treatment with a guardian advocate, and does not have a health care surrogate or proxy currently making medical treatment decisions. I have found this person to be one of the following: [X] Competent to provide express and informed consent, as defined above, for voluntary admission to this facility and is competent to provide express and informed consent for treatment. He/she has the consistent capacity to make well reasoned, willful, and knowing decisions concerning his or her medical or mental health treatment. The person fully and consistently understands the purpose of the admission for examination/placement and is fully capable of personally exercising all rights assured [place] [] Incompetent to provide express and informed consent to voluntary admission, and this is incompetent to provide express and informed consent to treatment. The person must be transferred to involuntary status and a petition for a guardian advocate filed with the Circuit Court. [] Refusing to provide express and informed consent to voluntary admission but is competent to provide express and informed consent for treatment. The person must be discharged or transferred to involuntary status. Form shall be completed within 24 hours of a person's arrival at the receiving facility and filed in the clinical record of each person: 1. Admitted on a voluntary basis 2. Permitted to provide express and informed consent to his/her own treatment 3. Allowed to transfer from involuntary to voluntary status 4. Prior to permitting a person to consent to his or her own treatment after having been previously found incompetent to consent to treatment. History of Present Illness Capacity: Has capacity Chief Complaint: overdose History of Present Illness: Patient is a 22-year-old male with a history of ADD here for an overdose on Xanax and opiates. He was seen yesterday for a consult and subsequently admitted to the psychiatric unit. Patient minimizes to suicide attempt and provides a convoluted story where him and his girlfriend both took to Xanax tablets to calm down after an argument. Patient describes recent risky behavior. Patient slept with another woman while he was intoxicated with alcohol. 2 days ago his girlfriend had a 3 sum with his sister and another monique. Patient has a history of cutting his left arm is marked with horizontal cuts. Yesterday, when asked about manic symptoms, he answers "yes, every day too hyper." However, he is not listening to the criteria very carefully. Today , H anupam denies recent depressed mood. Today, he denies suicidal or homicidal ideation intent or plan. I took all the drugs" when I ask him what brought him in this evening. As per ED notes, the patient reportedly took morphine (240 mg total) and Xanax (3 mg total) in an attempt to kill himself. He was given Narcan and activated charcoal prior to my evaluation. He is maintaining his airway and does not currently require intubation. Past psych: Patient was medicated at age 7 for ADD. Denies other inpatient or outpatient treatments. Denies a history of suicide attempts Past medical: Denies Past Famhx: Mom has bipolar and that has depression. Past Social: Patient works periodically doing "tree work." He has an upcoming court date after marijuana contact lens curve grinder was found in his car. He uses marijuana daily. And says he drinks alcohol twice a month. He gives conflicting statements concerning the use of other people's opiates and benzodiazepines. - Inpatient Certification I certify that the inpatient services were ordered in accordance with Medicare regulations governing the order. This includes certification that hospital inpatient services are reasonable and necessary and in the case of services not specified as inpatient-only under 42 CFR 419.22(n), that they are appropriately provided as inpatient services in accordance to with the 2-midnight benchmark under 43 CFR 412.3(e) I certify that inpatient psychiatric hospital services are medically necessary. Evaluation and treatment and/or diagnostic testing are expected to improve the patient's condition. The patient needs on a daily basis, active treatment furnished directly by or requiring the supervision of inpatient psychiatric facility personnel. Estimated Total Length of Stay (Days): 5 Plans for Post Hospital Care: Not yet determined Review of Systems All other systems reviewed negative except as stated in HPI PMFSH - History History Provided By: Patient - Medical History Medical History: Medical History (Last Reviewed 03/04/18 @ 12:33 by Ventura Schmidt DO) Medical history unknown Surgical history unknown - Tobacco History Second Hand Smoke Exposure: No Tobacco Use In Past 30 Days: No Smoking Status: Never smoker - Alcohol History How Often Do You Have a Drink Containing Alcohol: Monthly or less - Substance Use History Substance History: Active Abuse - Substance Use Type Marijuana Status: Active Route Used: Inhalation Frequency: Daily: Morning, Mid-day, and Night Reason for Use: Calm Down - Travel History Recent Travel in the [place] Within the Last 8 Weeks: No Recent Travel Out of the Country Within the Last 8 Weeks: No - Immunization History Tetanus Immunization: Unsure Hx Influenza Vaccine This Season: No Medications and Allergies Active Medications: Active Medications Acetaminophen (Tylenol) 650 mg PO Q4H PRN PRN Reason: Pain 1-5 or Temp >101F Al Hydrox/Mg Hydrox/Simethicone (Mag-Al Plus Susp Liq) 30 ml PO Q6H PRN PRN Reason: DYSPEPSIA Al Hydroxide/Mg Hydroxide (Milk Of Magnesia Liq) 30 ml PO Q12H PRN PRN Reason: Mild Constipation Flumazenil (Romazecon Inj) 0.2 mg IV.PUSH Q1M PRN PRN Reason: OVERSEDATION Haloperidol Lactate (Haldol Inj) 1 mg IV.PUSH Q15M PRN PRN Reason: for severe agitation Lorazepam (Ativan) 1 mg PO Q4H PRN PRN Reason: for CIWA 8-10 Lorazepam (Ativan Inj) 2 mg IV.PUSH Q2H PRN PRN Reason: for CIWA 11-14 Lorazepam (Ativan Inj) 2 mg IV.PUSH Q1H PRN PRN Reason: for CIWA 15-20 Lorazepam (Ativan Inj) 2 mg IV.PUSH Q15M PRN PRN Reason: for CIWA > 20 Lorazepam (Ativan Inj) 1 mg IV.PUSH Q4H PRN PRN Reason: for CIWA 8-10 Lorazepam (Ativan) 2 mg PO Q2H PRN PRN Reason: for CIWA 11-14 Melatonin (Melatonin) 5 mg PO HS PRN PRN Reason: INSOMNIA Nicotine (Habitrol 14 Mg Patch.24 Hr) 1 patch T-DERMAL DAILY PRN PRN Reason: Nicotine craving Patch Removal (Remove Old Patch) 1 each T-DERMAL HS JARON Last Admin: 03/03/18 20:32 Dose: Not Given Allergies Allergy/AdvReac Type Severity Reaction Status Date / Time *MDRO Multi-Drug Resistant AdvReac Unknown n/a Uncoded 03/02/18 18:55 Organism Home Medications Medication Instructions Recorded Confirmed Type No Known Home Medications 03/02/18 03/02/18 History Results - Labs CBC & Chem 7: 03/04/18 10:31 Labs: Laboratory Results - last 24 hr 03/04/18 10:31 Sodium 143 Potassium 3.7 Chloride 108 H Carbon Dioxide 28.5 Anion Gap 7 BUN 8 Creatinine 0.79 Estimated GFR Greater than 89 Random Glucose 92 Calcium 8.5 Triglycerides 105 Cholesterol 118 L LDL Cholesterol, Calc 63 HDL Cholesterol 34.5 L Cholesterol/HDL Ratio 3.42 TSH 1.980 Exam Vital signs: Vital Signs 03/03/18 17:56 03/04/18 06:24 Temperature 97.5 F L 97.6 F Pulse Rate 93 H Respiratory Rate 18 Blood Pressure 111/53 L 105/67 Pulse Oximetry 100 97 Intake & Output 03/03/18 03/04/18 03/04/18 18:59 06:59 18:59 Weight 52.3 kg Other: Weight On Admission 52.3 kg Mental Status Examination Appearance: Appropriate Consciousness: Alert Orientation: x4 Motor Activity: Normal gait Speech: Unremarkable Language: Adequate Fund of Knowledge: Adequate Attention and Concentration: Adequate Memory: Unremarkable Mood: Appropriate Affect: Anxious Thought Process & Associations: Intact Thought Content: Appropriate Hallucination Type: None Delusion Type: None Suicidal Ideation: No Suicidal Plan: No Suicidal Intention: No Homicidal Ideation: No Homicidal Plan: No Homicidal Intention: No Insight: Fair Judgment: Impulsive Assessment and Plan - Assessment (1) Unspecified mood [affective] disorder Code(s): F39 - Unspecified mood [affective] disorder Status: Acute - Plan Plan: Estimated LOS: [] days Patient may sign voluntary. He refuses medications Justification for Continued Inpatient Stay: Patient would decompensate in a less restrictive setting
[2018-03-04 13:16] LABS: Hemoglobin A1c 4.6 % (4.3-6.0)
[2018-03-05] MEDS ORDERED: Bisacodyl 10 MG Supp RECTAL PRN (12:10)
[2018-03-05] MEDS ORDERED: Aluminum/Magnesium/Simethacone Susp 30 ML UDC PO PRN (12:10)
--- NOTE | 2018-03-05 12:26 | P.DSPSY ---
Psychiatry Discharge Summary Inpatient Psychiatric care?: Yes Advance Directives: No Mental Health Advance Directive: No Health Care Proxy: No - Admission Admission Date: March 03, 2018 17:25 - Admission Diagnosis (1) Adjustment disorder with mixed disturbance of emotions and conduct Code(s): F43.25 - Adjustment disorder with mixed disturbance of emotions and conduct (2) Cannabis abuse Code(s): F12.10 - Cannabis abuse, uncomplicated (3) Opiate abuse, episodic Code(s): F11.10 - Opioid abuse, uncomplicated (4) Benzodiazepine abuse, episodic Code(s): F13.10 - Sedative, hypnotic or anxiolytic abuse, uncomplicated Brief History: Patient is a 22-year-old male with a history of ADD here for an overdose on Xanax and opiates. He was seen yesterday for a consult and subsequently admitted to the psychiatric unit. Patient minimizes to suicide attempt and provides a convoluted story where him and his girlfriend both took to Xanax tablets to calm down after an argument. Patient describes recent risky behavior. Patient slept with another woman while he was intoxicated with alcohol. 2 days ago his girlfriend had a 3 sum with his sister and another monique. Patient has a history of cutting his left arm is marked with horizontal cuts. Yesterday, when asked about manic symptoms, he answers "yes, every day too hyper." However, he is not listening to the criteria very carefully. Today , Mary Jane bo denies recent depressed mood. Today, he denies suicidal or homicidal ideation intent or plan. I took all the drugs" when I ask him what brought him in this evening. As per ED notes, the patient reportedly took morphine (240 mg total) and Xanax (3 mg total) in an attempt to kill himself. He was given Narcan and activated charcoal prior to my evaluation. He is maintaining his airway and does not currently require intubation. Past psych: Patient was medicated at age 7 for ADD. Denies other inpatient or outpatient treatments. Denies a history of suicide attempts Past medical: Denies Past Famhx: Mom has bipolar and that has depression. Past Social: Patient works periodically doing "tree work." He has an upcoming court date after marijuana precision grinder external was found in his car. He uses marijuana daily. And says he drinks alcohol twice a month. He gives conflicting statements concerning the use of other people's opiates and benzodiazepines. Tobacco Use In Past 30 Days: No How Often Do You Have a Drink Containing Alcohol: Monthly or less Hospital Course: Patient's hospital course was uneventful patient is seen today by me with nurse Charla, is a short statured white male with chinstrap type. He is calm and cooperative. He is oriented x4. He acknowledges living with his girlfriend of 8 months living together 7 months. He does acknowledge daily use of marijuana 2 -3 times per day. He said he and his girlfriend got into an argument about substance use. It appears at a green party where drugs are being used in the anticipated. Also was involved was the fact that the well drinking somewhat prior to this he had sex with another woman. Perhaps in response to that his girlfriend had the 3 some with her sister and another man. The patient states they have made up over this. The any event he does somewhat minimize his substance use though he has had various episodes of misusing alcohol. He has seen a psychiatrist briefly and as a young teenager for ADD. Today he denies suicidality or homicidality voices or visions. He is able contract to do no harm. He states is a good conversations with his girlfriend. Thus at this time I feel patient on meets criteria for inpatient psychiatric stay. Patient will be discharged from self, no Rx by me, may follow up with his PCP, refer to [facility] outpatient support groups, also refers to [facility] for substance abuse assessment. Absolute sobriety. - Discharge Discharge Date: 03/05/18 - Discharge Diagnosis (1) Cannabis abuse Diagnosis: Secondary Code(s): F12.10 - Cannabis abuse, uncomplicated Status: Acute (2) Opiate abuse, episodic Diagnosis: Secondary Code(s): F11.10 - Opioid abuse, uncomplicated Status: Acute (3) Benzodiazepine abuse, episodic Diagnosis: Secondary Code(s): F13.10 - Sedative, hypnotic or anxiolytic abuse, uncomplicated Status : Acute (4) Adjustment disorder with mixed disturbance of emotions and conduct Diagnosis: Principal Code(s): F43.25 - Adjustment disorder with mixed disturbance of emotions and conduct Status: Acute Discharge Disposition: Home - Discharge Instructions Discharge Diet: Regular Diet Activities You Can Perform: Regular- No Restrictions - Discharge Time > 30 minutes Mental Status Examination Appearance: Appropriate Consciousness: Alert Orientation: x4 Motor Activity: Normal gait Speech: Unremarkable Language: Adequate Fund of Knowledge: Adequate Attention and Concentration: Adequate Memory: Unremarkable Mood: Appropriate Affect: Anxious Thought Process & Associations: Intact Thought Content: Appropriate Hallucination Type: None Delusion Type: None Suicidal Ideation: No Suicidal Plan: No Suicidal Intention: No Homicidal Ideation: No Homicidal Plan: No Homicidal Intention: No Insight: Fair Judgment: Impulsive Discharge/Advance Care Plan - Results Vital Signs: Last Vital Signs Temp 97.3 F L 03/05/18 04:00 Pulse 56 L 03/05/18 04:00 Resp 16 03/05/18 04:00 BP 125/57 L 03/05/18 04:00 Pulse Ox 98 03/05/18 04:00 Lab Results: Abnormal Lab Results 03/04/18 10:31 Hemoglobin A1c 4.6 Laboratory Results Hemoglobin A1c 4.6 % (4.3-6.0) 03/04/18 10:31 Triglycerides 105 mg/dL (42-150) 03/04/18 10:31 Cholesterol 118 mg/dL (120-200) L 03/04/18 10:31 LDL Cholesterol, Calc 63 mg/dL (0-99) 03/04/18 10:31 HDL Cholesterol 34.5 mg/dL (40.0-60.0) L 03/04/18 10:31 TSH 1.980 uIU/mL (0.358-3.740) 03/04/18 10:31 Summary of Procedures: None done Pending Results: None - Medications Number of antipsychotic medications at discharge: 0 - Discharge Care Plan Goals to Promote Your Health: * To prevent worsening of your condition and complications * To maintain your health at the optimal level Directions to Meet Your Goals: Take your medications as prescribed Follow your dietary instruction Follow activity as directed Keep your appointments as scheduled Take your immunizations and boosters as scheduled If your symptoms worsen call your PCP, if no PCP go to Urgent Care Center or Emergency Room For 10/10 questions related to your inpatient stay or results of tests pending at discharge, please contact Dr. Herb Abreu MD at Smoking is Dangerous to Your Health. Avoid second hand smoking
[2018-03-05] MEDS ORDERED: Senna/Docusate Sodium 8.6/50 MG Tablet PO SCH (21:00)
== END 2018-03-05 15:20 | disposition home or self-care (01) ==
LOC: H260 17:25
PROVIDERS: ADMIT Psychiatry & Neurology Psychiatry; ATTEND Psychiatry & Neurology Psychiatry